=== PATIENT | female | born 1965 | race Caucasian/White ===

== ENCOUNTER 2021-04-08 14:17 | Outpatient (CLI) | payer BC, SELFPAY ==
--- NOTE | ~2021-04-08 | MM_ITS ---
EXAMINATION: MM screening erick BI w sriram HISTORY: Screening TECHNIQUE: Craniocaudal and mediolateral oblique 3-D tomosynthesis images were obtained and synthetic 2-D images were generated. CAD analysis was submitted and interpreted. COMPARISON: Comparison to multiple prior studies sequentially, with oldest reviewed study dated 02/2013. BREAST PARENCHYMAL COMPOSITION: The breasts are almost entirely fatty. FINDINGS: There is no evidence of suspicious mass, calcification, or architectural distortion to sugg est malignancy in either breast. There has been no suspicious interval change. IMPRESSION: 1. No mammographic evidence of malignancy. 2. Recommend routine screening mammography in one year. BI-RADS Category 1: Negative Reviewed, dictated and finalized at location A.
== END 2021-04-08 14:18 | disposition home or self-care (01) ==
PROVIDERS: PCP Internal Medicine; Visit Provider Internal Medicine
DX: Z12.31 Encounter for screening mammogram for malignant neoplasm of breast (principal)
CPT/HCPCS: 77063; 77067

== ENCOUNTER 2022-01-13 00:01 | Emergency (ER) | payer BC, SELFPAY ==
--- NOTE | ~2022-01-13 | CT_ITS ---
EXAMINATION: CT cervical spine wo con DATE: 01/13/2022 00:44 INDICATION: Status post fall. Neck pain. TECHNIQUE: Computed tomography (CT) of the cervical spine was performed without intravenous contrast. The dose-length product was 492 mGy-cm. Automated exposure control and iterative reconstruction tech nique were employed. COMPARISON: None FINDINGS: No fracture, subluxation or dislocation. Normal anatomic alignment. Vertebral body heights are maintained. Odontoid process within normal limits. No significant paraspinal soft tissue abnormal ity. Lung apices are normal. Craniovertebral junction is normal. There is mild spondylosis at C7-T1. IMPRESSION: 1. No acute abnormality of the cervical spine. Reviewed, dictated and finalized at location B. [employer] SYSTEMS OPERATOR
[2022-01-13 00:01] VITALS: BP 182/94; PULSE 90; RESP 14; TEMP 36.2; O2SAT 100
--- NOTE | 2022-01-13 00:09 | ED.NECK ---
HPI - Neck Pain/Injury General Chief Complaint: Neck Pain/Injury Stated Complaint: neck pain Time Seen by Provider: 01/13/22 00:09 Source: patient History of Present Illness HPI Narrative: 56-year-old female with history of hypertension, dyslipidemia, PRAVEEN on CPAP presents to the ER with a 1 day history of right lateral neck pain radiating to the suprascapular region. No history of trauma. No prior episodes of similar pain. MD complaint: neck pain Onset (ago): day(s) ( Started yesterday afternoon) Place: home Radiation: right shoulder Severity: severe Quality: aching Duration: constant Relieving factors: none Exacerbating factors: none Associated symptoms: none Treatments prior to arrival: ibuprofen Related Data Home Medications Medication Instructions Recorded Confirmed hydrochlorothiazide 25 mg PO DAILY 01/13/22 01/13/22 lisinopril 20 mg PO DAILY 01/13/22 01/13/22 semaglutide [Rybelsus] 14 mg PO DAILY 01/13/22 01/13/22 sertraline 50 mg PO DAILY 01/13/22 01/13/22 simvastatin 20 mg PO HS 01/13/22 01/13/22 Allergies Allergy/AdvReac Type Severity Reaction Status Date / Time No Known Allergies Allergy Verified 01/13/22 00:13 Review of Systems Review of Systems: All systems reviewed & are unremarkable except as noted in HPI and below Constitutional: Constitutional: Reports as per HPI and Reports no additional constitutional complaints Eyes: Eyes: Reports as per HPI and Reports no additional eye complaints ENT: Reports system reviewed and no additional complaints, except as documented Cardiovascular: Cardiovascular: Reports as per HPI and Reports no additional cardiovascular complaints Respiratory: Respiratory: Reports as per HPI and Reports no additional respiratory complaints Gastrointestinal: Gastrointestinal: Reports as per HPI and Reports no additional gastrointestinal complaints Genitourinary: Genitourinary: Reports no additional female genitourinary complaints Musculoskeletal: Comments: right lateral posterior neck pain radiating towards the right shoulder Integumentary/Breasts: Skin/Breast: Reports system reviewed and no additional complaints, except as docu Neurologic: Reports system reviewed and no additional complaints, except as documented Comments: no numbness or tingling of the upper extremity on the right side Psychiatric: Psychiatric: Reports no additional psychiatric complaints Endocrine: Endocrine: Reports no additional endocrine complaints Hematologic/Lymphatic: Hematologic/Lymphatic: Reports no additional hematologic/lymphatic complaints Allergic/Immunologic: Allergic/Immunologic: Reports no additional allergic/immunologic complaints [facility] Past Medical History Medical History (Updated 01/13/22 @ 00:53 by Davidson Comer MD) Dyslipidemia Hypertension Obstructive sleep apnea Exam Const: General: no acute distress and alert Orientation/consciousness: patient oriented x3 HENMT: Head: normal to inspection Eyes: Conjunctivae: conjunctivae normal Pupils: Equal, round and reactive pupils present Neck: Neck: normal visual inspection and no lymphadenopathy Chest: Chest palpation & inspection: normal inspection of the chest Resp: Effort & Inspection: normal respiratory effort Cardio: Rate: regular rate Rhythm: regular rhythm GI: GI Palp: Yes Soft to palpation : General: Yes no CVA tenderness Back/Spine/Pelvis: Back: no CVA tenderness Other: tenderness and spasm of the trapezius and the muscles of the right lateral neck. Skin: General skin exam: normal color Rashes: no rashes Neuro: General: patient oriented x3, moves all extremities, no meningeal signs and CN's II-XI intact bilaterally Extrem: General: normal to inspection MDM - Neck Pain/Injury MDM Narrative Medical decision making narrative: Neck pain trapezius spasm Differential Diagnosis Differential diagnosis: Likely disc disorder of cervical region, closed subluxation of cervical spine an
[2022-01-13] MEDS: KETOROLAC 30 MG/ML VIAL (*BKC) IM (00:25)
[2022-01-13] MEDS: HYDROcodone/acetaminophen (*CRX) 5-325 MG TABLET 1 TAB PO (00:57)
[2022-01-13 01:08] VITALS: BP 146/97
== END 2022-01-13 01:08 | disposition home or self-care (01) ==
PROVIDERS: Emergency Provider Internal Medicine Critical Care Medicine; PCP Internal Medicine
DX: M62.830 Muscle spasm of back (principal); M54.2 Cervicalgia
CPT/HCPCS: 72125; 96372; 99284; A9270; J1885

== ENCOUNTER 2023-02-21 09:51 | Outpatient (CLI) | payer BC, SELFPAY ==
--- NOTE | ~2023-02-21 | XR_ITS ---
EXAM: XR knee RT 3V DATE: 02/21/2023 10:20 HISTORY: medial RT knee pain x 1mo . COMPARISON: None available. FINDINGS: Normal mineralization. No fracture or dislocation. No lytic or blastic lesion. Mild medial joint space narrowing. Mild tricompartmental osteophytosis. Scattered enthesopathy. No erosion or pe riosteal change. Soft tissues within normal limits. IMPRESSION: No acute osseous finding in the right knee. Mild tricompartmental right knee osteoarthrit is. Reviewed, dictated and finalized at location K. IMPRESSION: No acute osseous finding in the right knee. Mild tricompartmental r ight knee osteoarthritis.
== END 2023-02-21 09:52 | disposition home or self-care (01) ==
LOC: CHSIMG 09:53
PROVIDERS: PCP Internal Medicine; Visit Provider Internal Medicine
DX: M25.561 Pain in right knee (principal); M54.50 Low back pain, unspecified; M17.11 Unilateral primary osteoarthritis, right knee
CPT/HCPCS: 73562

== ENCOUNTER 2023-03-01 14:54 | Outpatient (RCR) | payer BC, SELFPAY ==
--- NOTE | 2023-03-01 16:02 | PTOPEVAL1 ---
Assessment and note entered by Chilo Higuera Evaluation Information Assessment Status Evaluation Diagnosis right knee pain Onset 01/29/23 Subjective Information Pt. reports she suddenly developed right knee pain about 1 month ago. She reports that the knee pain has worsened over the past month. She reports she did recieve a cortisone injection with no relief. She is taking Meloxicam which has helped slightly. She denies any pain at rest. She reports pain is immediate in standing. She states that she has a sensation that the knee might give out and notices catching. She describes most pain in the front of the knee and radiate into the back of the knee. She reports that her pain is increased with stairs. She states ther goal is to reduce her pain. Reported Pain Level Pain Score 8: Self Report Assessment PT Clinical Summary Pt. is a 57 year old female who enters the clinic with right knee pain. she presents with impaired gait, impaired strength, impaired ROM and pain on this date. Continued skilled PT is indicated in order to improve these areas to allow for improved comfort with IADL performance. Plan of Care Interventions Electrical Stimulation,Gait Training,Hot Pack/Cold Pack,Manual Therapy,Neuro Re-education, Therapeutic Activities,Therapeutic Exercise PT Services Indicated Yes Treatment Frequency and 2x/week x 8 visits Duration These treatments will address the objective and functional deficits as defined above. The patient will be advanced safely and appropriately in order for the patient to progress towards his/her prior level of function. Additional exercises will be introduced and as well as a comprehensive home exercise program upon discharge, if needed, ?to ensure carryover of functional gains achieved in the clinic. This treatment plan has been reviewed and agreement upon by the patient.
== END 2023-03-14 09:57 | disposition home or self-care (01) ==
LOC: CHSPT 14:54
PROVIDERS: PCP Internal Medicine; Visit Provider Internal Medicine
DX: M25.561 Pain in right knee (principal)
CPT/HCPCS: 97014; 97110; 97140; 97161; G0283

== ENCOUNTER 2023-03-25 07:43 | Outpatient (CLI) | payer BC, SELFPAY ==
--- NOTE | ~2023-03-25 | MR_ITS ---
EXAMINATION: MR knee RT wo con DATE: 03/25/2023 09:40 INDICATION: Right knee pain and swelling. TECHNIQUE: Magnetic resonance imaging (MRI) of the right knee was performed without intravenous contr ast. Sequences included axial PD-weighted FS FSE, coronal PD-weighted FSE and PD-weighted FS FSE, sag ittal PD-weighted FSE, and sagittal T2-weighted FS FSE. COMPARISON: Right knee radiographs 02/21/2023 FINDINGS: Medial compartment: There is a vertical tear of posterior horn of medial meniscus. There is deep partial thickness cartil age loss of femoral condyle, worst at the central and medial articular surface. There is deep partial thickness cartilage loss of tibial condyle involving the central and medial articular surface with m oderate subchondral edema-like marrow signal intensity. Osteophytes are noted. Lateral compartment: Lateral meniscus is normal. Lateral compartment cartilage is normal. Patellofemoral compartment: There is deep partial thickness cartilage loss involving patellar medial facet, median ridge, and lat eral facet with mild subchondral edema-like marrow signal intensity. There is cartilage surface irreg ularity of trochlea. Osteophytes are noted. Ligaments and tendons: The anterior and posterior cruciate ligaments are normal. There is edema around medial collateral lig ament, consistent with mild sprain. There are changes of prior sprain of fibular collateral ligament characterized by thickening and increased signal intensity proximally. There is mild patellar tendino natanael. Fluid: There is a moderate-sized knee joint effusion. There is a moderate-sized ruptured Hernandez's cyst. There is mild prepatellar and superficial infrapatellar bursitis. IMPRESSION: 1. Moderate chondrosis of medial and patellofemoral compartments. 2. Tear of medial meniscus. 3. Moderate-sized knee joint effusion. 4. Moderate-sized ruptured Hernandez's cyst. 5. Mild sprain of medial collateral ligament (grade 1). Reviewed, dictated and finalized at location A.
== END 2023-03-25 07:44 | disposition home or self-care (01) ==
LOC: CHSIMG 07:44
PROVIDERS: PCP Internal Medicine; Visit Provider Internal Medicine
DX: M25.561 Pain in right knee (principal); M22.2X1 Patellofemoral disorders, right knee; S83.241A Other tear of medial meniscus, current injury, right knee, initial encounter; M25.461 Effusion, right knee; M71.21 Synovial cyst of popliteal space [Baker], right knee; S83.411A Sprain of medial collateral ligament of right knee, initial encounter
CPT/HCPCS: 73721

== ENCOUNTER 2024-06-06 13:17 | Outpatient (CLI) | payer OTHER, SELFPAY ==
--- NOTE | ~2024-06-06 | MM_ITS ---
EXAMINATION: MM screening erick BI w sriram HISTORY: Screening TECHNIQUE: Craniocaudal and mediolateral oblique 3-D tomosynthesis images were obtained and synthetic 2-D images were generated. CAD analysis was submitted and interpreted. COMPARISON: Comparison to multiple prior studies sequentially, with oldest reviewed study dated 06/10. BREAST PARENCHYMAL COMPOSITION: Not Dense: Breast are almost entirely fatty. FINDINGS: There is no evidence of suspicious mass, calcification, or architectural distortion to sugg est malignancy in either breast. There has been no suspicious interval change. IMPRESSION: 1. No mammographic evidence of malignancy. 2. Recommend routine screening mammography in one year. BI-RADS Category 1: Negative Reviewed, dictated and finalized at location B.
== END 2024-06-06 13:18 | disposition home or self-care (01) ==
LOC: CHSIMG 13:20
PROVIDERS: PCP Internal Medicine; Visit Provider Internal Medicine
DX: Z12.31 Encounter for screening mammogram for malignant neoplasm of breast (principal)
CPT/HCPCS: 77063; 77067

== ENCOUNTER 2025-09-27 10:49 | Emergency (ER) | payer OTHER, SELFPAY ==
[2025-09-27 11:08] VITALS: BP 115/76; PULSE 74; RESP 16; TEMP 36; O2SAT 98
--- NOTE | 2025-09-27 11:11 | ED.EXTPRO ---
HPI - Extremity Problem General Chief complaint: Extremity Problem,Nontraumatic Stated complaint: gout Patient presents to the [facility] with complaints of gout flare-up in the right hand that began overnight. Patient noted tenderness, swelling, and redness of right hand. Patient has had recent flare ups in the past non a, effort to happen in the right hand. Patient reports taking root just seen in the past. Patient denies any history of significant flare ups and does not take any daily medication for symptoms. Denies numbness, tingling, open wound, or drainage from the area Related Data Home Medications ?Medication ?Instructions ?Recorded ?Confirmed ?Last Taken ?Type hydrochlorothiazide 25 mg tablet 25 mg PO DAILY 01/13/22 01/13/22 Unknown History lisinopril 20 mg tablet 20 mg PO DAILY 01/13/22 01/13/22 Unknown History semaglutide 14 mg tablet (Rybelsus) 14 mg PO DAILY 01/13/22 01/13/22 Unknown History sertraline 50 mg tablet 50 mg PO DAILY 01/13/22 01/13/22 Unknown History simvastatin 20 mg tablet 20 mg PO HS 01/13/22 01/13/22 Unknown History Allergies Allergy/AdvReac Type Severity Reaction Status Date / Time No Known Allergies Allergy Verified 09/27/25 11:03 Review of Systems Constitutional: Constitutional: Reports as per HPI, Denies chills, Denies fatigue, Denies fever(s) and Denies weakness Eyes: Eyes: Reports no additional eye complaints ENT: Reports system reviewed and no additional complaints, except as documented Cardiovascular: Cardiovascular: Reports no additional cardiovascular complaints Respiratory: Respiratory: Reports no additional respiratory complaints Gastrointestinal: Gastrointestinal: Reports no additional gastrointestinal complaints Genitourinary: Genitourinary: Reports no additional female genitourinary complaints Musculoskeletal: Musculoskeletal: Reports as per HPI, Reports arthralgias, Reports joint swelling and Denies muscle cramps Integumentary/Breasts: Skin/Breast: Reports as per HPI, Reports erythema, Denies rash and Denies skin ulcer Neurologic: Reports as per HPI, Denies numbness and Denies weakness Psychiatric: Psychiatric: Reports no additional psychiatric complaints Endocrine: Endocrine: Reports no additional endocrine complaints Hematologic/Lymphatic: Hematologic/Lymphatic: Reports no additional hematologic/lymphatic complaints Allergic/Immunologic: Allergic/Immunologic: Reports no additional allergic/immunologic complaints [facility] Past Medical History Medical History (Updated 09/27/25 @ 11:12 by Rosa Carrillo, ANA, [employer]ABLE W[employer] TREATMENT OPERATOR-C) Obstructive sleep apnea Dyslipidemia Hypertension Exam Const: General: healthy appearing and no acute distress Nutritional Appearance: well nourished Orientation/consciousness: patient oriented x3 Limitations: no limitations Resp: Effort & Inspection: normal respiratory effort Auscultation: clear to auscultation bilaterally Cardio: Rate: regular rate Rhythm: regular rhythm Skin: General skin exam: No normal color Rashes: no rashes Wounds: no wounds Neuro: General: patient oriented x3 and moves all extremities Cranial nerves: Yes Nystagmus not present Speech: normal speech Gait exam (Neuro): Normal gait present Extrem: Right upper extremity: Extremity exam: right hand abnormal to inspection, normal capillary refill, neuromotor exam normal, neurosensory exam normal, tendon exam normal, tenderness, warmth, swelling and other (erythema noted-minimal ) Psych: Mental Status: mental status grossly normal Affect: normal affect Attitude: cooperative Course Course Level of Care: Express Care Visit Vital Signs Vital signs: Vital Signs Temperature 96.8 F L 09/27/25 11:08 Pulse Rate 74 09/27/25 11:08 Respiratory Rate 16 09/27/25 11:08 Blood Pressure 115/76 09/27/25 11:08 Pulse Oximetry 98 09/27/25 11:08 Temperature 96.8 F L 09/27/25 11:08 Pulse Rate 74 09/27/25 11:08 Respiratory Rate 16 09/27/25 11:08 Blood Pressure 115/76 09/27/25 11:08 Pulse Oximetry 98 09/27/25 11:08 MDM - Extremity (Nontraumatic) MDM Narrative Medical decision making narrative: history of gout in this right hand. Symptoms similar to previous episodes. Patient prefers colchicine The patient was evaluated by myself in the express care. History is obtained from patient who is an independent historian and physical exam was performed. Available medical records were reviewed at this time. Exam findings show no acute concerns or changes; patient is non-toxic appearing and is in no distress. Patient is appropriate for outpatient treatment and follow-up. I have evaluated and discussed social determinants of health with the patient that could potentially impact subsequent diagnosis and treatment plans. Differential diagnosis and treatment plan were discussed with the patient. Patient agrees with discussion and after shared medical decision making agrees with plan of care. All questions were answered to the patient's satisfaction. Differential Diagnosis Differential diagnosis: Likely herpes zoster, gout, cellulitis, superficial thrombophlebitis, lower extremity edema and deep vein thrombosis of lower extremity Medical Records Attestation: I reviewed the patient's medical records. Discharge Plan Discharge Clinical Impression: Gout Qualifiers: Gout site: hand Chronicity: acute Laterality: right Patient Disposition: Home Condition: Stable Instructions: Antibiotic Form, Low Purine Diet (ED), Gout (ED) Additional Instructions: take the medication as directed. If symptoms not resolved follow-up with primary care physician within the next several days. Patient Language: Angolan Prescriptions: New colchicine 0.6 mg capsule See Rx Instructions .ROUTE .COMPLEX Qty: 3 0RF Rx Instructions: take 2 tablets then take 1 tablet 1 hour later. Max daily dosing 1.8 mg. No Action lisinopril 20 mg tablet 20 mg PO DAILY simvastatin 20 mg tablet 20 mg PO HS hydrochlorothiazide 25 mg tablet 25 mg PO DAILY sertraline 50 mg tablet 50 mg PO DAILY Rybelsus 14 mg tablet 14 mg PO DAILY meloxicam [Mobic] 7.5 mg tablet 7.5 mg PO DAILY Qty: 14 0RF Follow-up/Referrals: Montez Baer MD [Primary Care Provider, Internal Medicine] Time of Disposition: 11:14
== END 2025-09-27 11:16 | disposition home or self-care (01) ==
PROVIDERS: Emergency Provider Nurse Practitioner Family; PCP Internal Medicine
DX: M10.9 Gout, unspecified (principal); I10 Essential (primary) hypertension; E78.5 Hyperlipidemia, unspecified
CPT/HCPCS: 99213; G0463